=== PATIENT | male | born 1980 | race Hispanic/Latino ===

== ENCOUNTER → 2016-09-27 | Outpatient (CLI) | payer SELFPAY ==
--- NOTE | 2016-09-30 08:32 | US ---
EXAM DESCRIPTION: Scrotal ultrasound. CLINICAL HISTORY: Mass palpated COMPARISON: None. TECHNIQUE: High resolution evaluation with grayscale and Doppler interrogation. FINDINGS: Right: Testicle measures 4.9 x 3.4 x 2.7 cm. There is a epididymal head cyst noted measuring 1.5 cm in diameter. Testicular parenchyma is unremarkable without focal lesion or abnormal vascularity. No hydrocele or varicocele. Left: Testicle measures 5.4 x 3.5 x 3.1 cm. The epididymis is unremarkable. Testicular parenchyma is unremarkable without focal lesion or abnormal vascularity. No hydrocele or varicocele. IMPRESSION: There is a 1.5 cm epididymal head cyst on the right. The remaining study is unremarkable. Electronically signed by: Jake Messer MD 09/30/2016 08:30
== END | disposition home or self-care (01) ==
LOC: US 15:27
PROVIDERS: ATTEND Surgery
DX: D29.21 Benign neoplasm of right testis (principal)